=== PATIENT | female | born 1975 | race American Indian/Alaskan Native ===

== ENCOUNTER 2016-10-02 07:44 | Day surgery (SDC) | payer OTHER ==
[2016-09-28 10:55] LABS: Basophils % (Auto) 0.5 % (0.0-1.8); Eosinophils % (Auto) 0.8 % (0.0-4.3); Hematocrit 38.9 % (30.3-42.9); Hemoglobin 12.7 gm/dl (10.1-14.3); Mean Corpuscular HGB Conc 33 % (30-34); Mean Corpuscular Hemoglobin 30 pg (28-32); Mean Corpuscular Volume 92 fl (79-97); Platelet Count 313 K/mm3 (140-440); Red Blood Count 4.22 M/mm3 (3.65-5.03); Red Cell Distribution Width 15.6 % (13.2-15.2); White Blood Count 7.2 K/mm3 (4.5-11.0)
[2016-09-28 11:14] LABS: Alanine Aminotransferase 17 units/L (7-56); Albumin 4.3 g/dL (3.9-5); Albumin/Globulin Ratio 1.2 %; Alkaline Phosphatase 128 units/L (35-129); Anion Gap 17 mmol/L; BUN/Creatinine Ratio 12.85; Blood Urea Nitrogen 9 mg/dL (7-17); Calcium 9.2 mg/dL (8.4-10.2); Carbon Dioxide 25 mmol/L (22-30); Chloride 99.5 mmol/L (98-107); Glucose 95 mg/dL (65-100); Potassium 4.2 mmol/L (3.6-5.0); Sodium 137 mmol/L (137-145); Total Protein 7.8 g/dL (6.3-8.2)
[~2016-10-02 07:44] MED LIST: ANCEF/STERILE WATER 2 GM/20 ML 2 GM/20 ML SYRINGE IV NR; LACTATED RINGERS 1,000 ML IV SCH
--- NOTE | 2016-10-02 08:49 | Anesthesia Day of Surgery ---
Anesthesia Day of Surgery - Day of Surgery Patient Examined: Yes Patient H&P Reviewed: Yes Patient is NPO: Yes
--- NOTE | 2016-10-02 08:50 | Anesthesia Consultation ---
Anesthesia Consult and Med Hx Date of service: 10/02/16 - Airway Anesthetic Teeth Evaluation: Good ROM Head & Neck: Adequate Mental/Hyoid Distance: Adequate Mallampati Class: Class II Intubation Access Assessment: Probably Good - Pulmonary Exam CTA: Yes - Cardiac Exam Cardiac Exam: RRR - Pre-Operative Health Status ASA Pre-Surgery Classification: ASA2 Proposed Anesthetic Plan: General - Pulmonary Hx Smoking: No Hx Sleep Apnea: No - Central Nervous System Hx Back Pain: Yes (OCCASIONAL) Hx Psychiatric Problems: No - Hematic Hx Anemia: Yes (IRON/ RESOLVED SINCE 2014) - Other Systems Hx Cancer: Yes (left breast)
[2016-10-02] MEDS ORDERED: VERSED IV NR (09:00)
[2016-10-02] MEDS ORDERED: PEPCID PO NR (09:00)
[2016-10-02] MEDS ORDERED: ZOFRAN IV PRN (09:00)
[2016-10-02] MEDS ORDERED: NACL BACTERIOSTATIC INFILTRATI ONE (09:00)
[2016-10-02] MEDS ORDERED: ANCEF/STERILE WATER 2 GM/20 ML 2 GM/20 ML SYRINGE IV NR (10:00)
[2016-10-02] MEDS ORDERED: DIPRIVAN 10 MG/ML IV ONE (11:03)
[2016-10-02] MEDS ORDERED: DILAUDID ONE ×2 (11:04→12:32)
[2016-10-02] MEDS ORDERED: NACL ONE (11:19)
[2016-10-02] MEDS ORDERED: METHYLENE BLUE ONE (11:19)
[2016-10-02] MEDS ORDERED: XYLOCAINE MPF 2% ONE (11:51)
[2016-10-02] MEDS ORDERED: DECADRON ONE (11:51)
[2016-10-02] MEDS ORDERED: MARCAINE 0.25% INFILTRATI ONE ×3 (12:23→12:30)
[2016-10-02] MEDS ORDERED: XYLOCAINE 1% 20 mL ONE (12:23)
[2016-10-02] MEDS ORDERED: METHYLENE BLUE IRRIGATION ONE (12:27)
[2016-10-02] MEDS ORDERED: XYLOCAINE 1% 20 mL INFILTRATI ONE ×2 (12:30)
[2016-10-02] MEDS ORDERED: NACL 0.9% IR ONE (12:48)
[2016-10-02] MEDS ORDERED: NACL 0.9% 1000 ML 1,000 ML ONE (13:31)
[2016-10-02] MEDS ORDERED: TORADOL ONE (13:47)
[2016-10-02] MEDS ORDERED: ZOFRAN ONE (13:47)
[2016-10-02] MEDS ORDERED: WATER FOR IRRIG STERILE IR ONE (13:59)
[2016-10-02] MEDS: DILAUDID IV PRN ×2 (14:45→15:05)
--- NOTE | 2016-10-02 15:17 | Discharge Summary ---
Providers - Providers Date of discharge: 10/02/16 Attending physician: SANDRITA COELHO Primary care physician: JOSÉ MIGUEL ESPARZA Hospitalization Reason for admission: outpatient lumpectomy + SNL biopsy Condition: Stable Procedures: left breast lumpectomy with SLN Bx Disposition: - TO HOME OR SELFCARE Core Measure Documentation - Palliative Care Palliative Care/ Comfort Measures: Not Applicable - Core Measures Any of the following diagnoses?: none Exam - Physical Exam Narrative exam: VSS NAD Left breast with clean dressing intact Lungs CTA BL Heart RRR Abd Soft, NT ND Neuro AAOx3 - Constitutional Vitals: Temp Pulse Resp BP Pulse Ox 98.2 F 80 12 104/67 98 10/02/16 08:55 10/02/16 08:55 10/02/16 15:05 10/02/16 08:55 10/02/16 08:55 Plan Activity: advance as tolerated Diet: advance as tolerated Wound: keep clean and dry (REMOVE TEGADERM AND GAUZE in 48 hrs. Leave steri- strips in place) Follow up with: JOSÉ MIGUEL ESPARZA MD [Primary Care Provider] - 7 Days
--- NOTE | 2016-10-02 16:20 | Post Anesthesia Evaluation ---
- Post Anesthesia Evaluation Patient Participated: Yes Airway Patent: Yes Stable Respiratory Function: Yes Nausea/Vomiting: No Temp > 96.8F: Yes Pain Manageable: Yes Adequeate Hydration: Yes Anesthesia Complications: No Block Receding Appropriately: Not Applicable Patient on Ventilator: No
[2016-10-02 16:29] VITALS: BP 111/70
--- NOTE | 2016-10-04 14:41 | Operative Report ---
Operative Report Operative Report: Operative Report Date Of Procedure: 10/02/2016 Attending Surgeon: Stuart Hollingsworth MD Fellow: Kenyon West MD Pick Out Hand: Dr. Quintanilla Preop Diagnosis: Left Breast Cancer Postop Diagnosis: Same Procedure: 1. Left Breast Lumpectomy 2. [place] Lymph node Biopsy with T99 and Methylene blue injection Indications for the Procedure: Ms. Herrera is a 41-year-old female with biopsy- proven breast cancer. After discussing risks and benefits of the procedure she decided to consent for it. Description of the Procedure: The patient was brought to the operating room, was placed in the operating table in supine position. General endotracheal tube anesthesia was given by the anesthesia team. The patient was prepped and draped in the standard fashion. Timeout was called patient of the procedure were correct. We proceeded to inject technetium 99 on 4 quadrants of the nipple-areolar complex and proceeded to inject methylene blue in the subareolar dermis. Then, using the, probe we proceeded to scan the left axillary region. High uptake was noticed on an a specific spot that was marked. We administered local anesthesia. On top of that spot we proceeded to make our 2 cm incision was carried down to a clavipectoral fascia with the electrocautery. When we enter the axillary lymph node tissue area we scaned again with the gamma probe and follow the high uptake to identify the enlarged lymph nodes. By palpation I was able to find 2 enlarged lymph nodes that were dissected out and the lymphatic channels were clipped with a medically as well as a small vascular pedicels. Once the lymph nodes were removed we used the gamma probe to scan for uptake 1 of the lymph nodes had high uptake and the other lymph node had low uptake but he was enlarged both were sent as sentinel lymph node biopsy for permanent pathology report. The count for the background axillary tissue was minimal and less than 10% of the initial count. Then we proceeded to close the incision in layers reapproximating the clavipectoral fascia with 2-0 Vicryl and then the deep dermal region with 3-0 Monocryl and subcuticular closure WAS K and was done with running 4-0 Monocryl. A temporary dressing was applied. Then we centered our attention on the left breast mass that was easily palpable , located on the upper outer quadrant and 3cm from the nipple-areola complex. We infiltrated local anesthesia around the tumor area. The overlying skin was retracted so we decided to create an elliptical incision over it to remove that portion of skin with the specimen. We carried out a circumferential dissection using the electrocautery leaving a small margin around the tumor to preserve the normal breast anatomy. When the tumor was removed it was painted for borders on the back table. The cavity was irrigated and then closed in layers with 3-0 vicryl and 4/0 monocryl subcuticular stitch. Dressing were applied. Patient tolerated well the procedure, intruments and lap counts were correct x2. She was extubated and sent to recovery room.
== END 2016-10-02 16:50 | disposition home or self-care (01) ==
LOC: OR 07:44
PROVIDERS: ATTEND Specialist
DX: C50.912 Malignant neoplasm of unspecified site of left female breast (principal); C77.3 Secondary and unspecified malignant neoplasm of axilla and upper limb lymph nodes; D64.9 Anemia, unspecified; Z98.890 Other specified postprocedural states; Z72.89 Other problems related to lifestyle
CPT/HCPCS: 19301; 36415; 38525; 38792; 78800; 80053; 84703; 85025; 88307; 88341; 88342; 88361; 93005; 93010; A9541; J0690; J1100; J1170; J1885; J2250; J2405; J2704; J7030; J7120; Q9968; 88333